=== PATIENT | female | born 1990 | race Caucasian/White ===

== ENCOUNTER 2017-04-14 15:40 | Inpatient (IN) ==
[2017-04-14] MEDS ORDERED: 0.9 % Sodium Chloride 1,000 ML IVC ONE (15:48)
--- NOTE | 2017-04-14 16:13 | Emergency Department Note ---
Disposition Clinical Impression: Flexor tenosynovitis of finger Cellulitis Qualifiers: Site of cellulitis: extremity Site of cellulitis of extremity: finger Laterality: left Qualified Code(s): L03.012 - Cellulitis of left finger Disposition: Admitted As Inpatient Condition: Good Referrals: NONE,PCP [Non-Partnered Physician] - Forms: ED Satisfaction Letter Time of Disposition: 16:53 General Adult HPI - General Chief complaint: ED Extremity Injury, Upper Stated complaint: Left hand infection Time Seen by Provider: 04/14/17 15:47 Source: patient Limitations: no limitations Nursing Notes Reviewed: Yes Vital Signs Reviewed: Yes - History of Present Illness HPI Narrative: 26 year old female who is a patient of dr. gole states that she was sent here yesterday for IV ABX and surgery consult for her left hand infection which she had a HAND CT on 04/08/17 which showed left 2nd metatasal tensynovitis without obvsious evidence of osteomyleitis. 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 Kathleen states that this area on her left palmar 2nd metatarsal develop about one month ago and she has tried outpatient therapy with bactrim and doxycycline and although it has minimally imporved she was told to come to the ED for admission for IV aBX and surgical consult. She states that her PCP has already spoken with the surgeon and he recommends admission as well. Kathleen states there is no drainage or abscess formation, denies any trauma to the area. she denies fevers, or nausea or vomitting. Pain Scale: 2 - Related Data Home Medications Medication Instructions Recorded Confirmed Buprenorphine HCl/Naloxone HCl 1 each SL BID 04/14/17 04/14/17 [Suboxone 8 mg-2 mg Sl Film] Ibuprofen [Motrin] 800 mg PO Q8HR PRN 04/14/17 04/14/17 raNITIdine HCl [Ranitidine HCl] 300 mg PO DAILY 04/14/17 04/14/17 Previous Rx's Medication Instructions Recorded Doxycycline 100 mg PO BID #20 capsule 03/13/17 Allergies Allergy/AdvReac Type Severity Reaction Status Date / Time aspirin [ASA] Allergy Anaphylaxis Verified 09/26/16 11:48 Constitutional: Denies: fever, chills, weakness, weight change Eyes: Denies: eye pain, eye discharge, vision change ENT ED: Denies: ear pain, throat pain, dental pain, hearing loss, epistaxis, congestion, dysphagia Cardiovascular: Denies: chest pain, palpitations, dyspnea on exertion, edema, syncope Respiratory: Denies: cough, dyspnea, wheezes, hemoptysis, stridor Gastrointestinal: Denies: abdominal pain, nausea, vomiting, diarrhea, constipation, hematemesis, melena, hematochezia Genitourinary: Denies: dysuria, frequency, hematuria, discharge Musculoskeletal: Reports: other (left hand pain). Denies: back pain, neck pain , arthralgia, myalgia Integumentary: Denies: rash, abrasion, lesions Neurological: Denies: headache, weakness, numbness, paresthesias, confusion, abnormal gait, vertigo Psychiatric: Denies: anxiety, depression, suicidal thoughts, homicidal thoughts , auditory hallucinations, visual hallucinations Endocrine: Denies: fatigue Hematological/Lymphatic: Denies: easy bleeding, easy bruising Allergic/Immunologic: Denies: facial swelling, urticaria Past Medical History - Past Medical History Medical history: Reports: no medical history Psychiatric history: Reports: no psych history 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 - Social History Smoking Status: Current every day smoker Smokeless Tobacco Status: No Alcohol use: Reports: none Drug use: Reports: IV Drug Use Physical Exam - General Limitations: no limitations General appearance: alert, in no apparent distress - Head Head exam: atraumatic, normocephalic, normal inspection - Eye Eye exam: Present: normal appearance, PERRL, EOMI - Expanded Eye Exam Pupils: Left: reactive - ENT ENT exam: normal exam, normal oropharynx, mucous membranes moist - Expanded ENT Exam External ear exam: Present: normal external inspection Mouth exam: Present: normal external inspection Teeth exam: Present: normal inspection Throat exam: Present: normal inspection - Neck Neck exam: Present: normal inspection, full ROM, trachea midline - Chest Chest inspection: Present: normal inspection, symmetric chest wall rise - Respiratory Respiratory exam: Present: normal lung sounds bilaterally - Cardiovascular Cardiovascular exam: Present: regular rate, normal rhythm, normal heart sounds - Abdominal Exam Abdominal exam: Present: soft, Non-Tender. Absent: tenderness, distention, guarding, rebound, rigidity - Extremities Exam Extremities exam: Present: normal inspection, full ROM. Absent: tenderness, pedal edema - Expanded Upper Extremity Exam Shoulder exam: Present: normal inspection, full ROM Arm exam: Present: normal inspection, full ROM Elbow exam: Present: normal inspection, full ROM Forearm/Wrist exam: Present: normal inspection, full ROM Hand exam: Present: tenderness, swelling, erythema Hand L/R front image: 1 - other (erythema without flunctuance) Vascular exam: Normal: capillary refill, radial pulse - Expanded Lower Extremity Exam Hip/Pelvis exam: Present: normal inspection, full ROM Upper leg exam: Present: normal inspection, full ROM Knee exam: Present: normal inspection, full ROM Lower leg exam: Present: normal inspection, full ROM Ankle exam: Present: normal inspection, full ROM Foot/toe exam: Present: normal inspection, full ROM Neurovascular/Tendon exam: Absent: motor deficit, sensory deficit, tendon deficit - Back Exam Back exam: Present: normal inspection, full ROM. Absent: tenderness - Neurological Exam Neurological exam: Present: alert, oriented X3 - Expanded Neurological Exam Patient oriented to: Present: person, place, time Coma Scale Eye Opening: Spontaneous Coma Scale Motor Response: Obeys Commands Coma Scale Verbal Response: Oriented Coma Scale Total: 15 - Psychiatric Psychiatric exam: Present: normal affect, normal mood - Skin Skin exam: Present: warm, dry, intact, normal color Course Course Narrative: we will page her primary care doctor and investigate the direct admit orders through bed mangement. - Reevaluation(s) Reevaluation #1: updated patinet on resulst and she is agreeable to plan Time: 16:59 - Consultations Consultation #1: discussed case with Dr. Goel and she states that she had consulted Dr. Weiss and that he did not want to see her outpatient and wnated her to be admitted to the medicine service with consult to him for inpatient IV ABX and surigcal consult. We will admit to cam after speaking with Dr. Weiss. Time: 16:41 Consultation #2: discussed case with Dr. Weiss he would like patient admitted to medicine with consult to him. He would like vancoymycin started. Time: 16:53 Consultation #3: discussed case with Dr. Lo and she accepts patient for admission. Time: 16:59 Vital Signs Temperature 98.2 F 04/14/17 15:41 Pulse Rate 101 04/14/17 15:41 Respiratory Rate 18 04/14/17 15:41 Blood Pressure 143/82 04/14/17 15:41 O2 Sat by Pulse Oximetry 98 04/14/17 15:41 Temperature 98.2 F 04/14/17 15:41 Pulse Rate 101 04/14/17 15:41 Respiratory Rate 18 04/14/17 15:41 Blood Pressure 143/82 04/14/17 15:41 O2 Sat by Pulse Oximetry 98 04/14/17 15:41 Oxygen Delivery Oxygen Delivery Room Air Medical Decision Making - Lab Data Result diagrams: 04/14/17 16:09 04/14/17 16:09 Lab Results 04/14/17 04/14/17 04/14/17 Range/Units 16:09 16:09 16:09 WBC 7.0 (4.3-11.1) K/mcL RBC 4.49 (3.82-4.97) M/mcL Hgb 13.5 (11.5-15.4) g/dL Hct 41.1 (35.3-44.9) % MCV 91.5 (83.0-100.0) fL MCH 30.1 (28.0-33.3) pg MCHC 32.8 (31.6-35.5) g/dL RDW 13.5 (11.5-14.5) % Plt Count 235 (140-400) K/mcL MPV 11.2 (9.4-12.4) fL Immature Gran % 0.1 (0-4) % Seg Neutrophils % 45.0 % Lymphocytes % 36.0 % Monocytes % 8.8 % Eosinophils % 9.0 % Basophils % 1.1 % Neutrophils # 3.2 (1.6-8.9) K/mcL Lymphocytes # 2.5 (0.6-4.6) K/mcL Monocytes # 0.6 (0.0-1.3) K/mcL Eosinophils # 0.6 (0.0-0.6) K/mcL Basophils # 0.1 (0.0-0.2) K/mcL PT 11.8 (9.4-12.1) Seconds INR 1.1 APTT 28.9 (26.0-36.0) Seconds Sodium 139 (136-145) mEq/L Potassium 3.3 L (3.5-4.5) mEq/L Chloride 105 (98-109) mEq/L Carbon Dioxide 26 (19-29) mEq/L BUN 15 (7-20) mg/dL Creatinine 0.88 (0.57-1.11) mg/dL Est GFR ( Amer) > 60 (> 60) Est GFR (Non-Af Amer) > 60 (> 60) BUN/Creatinine Ratio 17 (6-26) Glucose 92 (70-99) mg/dL Calculated Osmolality 288 (280-300) Lactic Acid (0.5-2.2) mmol/L Calcium 9.5 (8.6-10.8) mg/dL Phosphorus 3.9 (2.3-4.7) mg/dL Magnesium 1.8 (1.6-2.6) mg/dL Total Bilirubin < 0.3 (0.2-1.2) mg/dL Direct Bilirubin 0.1 (0.0-0.5) mg/dL Indirect Bilirubin 0.2 (0.0-1.2) mg/dL AST 17 (5-34) Units/L ALT 16 (0-55) Units/L Alkaline Phosphatase 52 (38-126) Units/L Serum Total Protein 7.8 (6.0-8.3) g/dL Albumin 3.6 (3.5-5.0) g/dL Globulin 4.2 H (2.4-3.5) g/dL Albumin/Globulin Ratio 0.9 L (1.1-2.2) 04/14/17 Range/Units 16:09 WBC (4.3-11.1) K/mcL RBC (3.82-4.97) M/mcL Hgb (11.5-15.4) g/dL Hct (35.3-44.9) % MCV (83.0-100.0) fL MCH (28.0-33.3) pg MCHC (31.6-35.5) g/dL RDW (11.5-14.5) % Plt Count (140-400) K/mcL MPV (9.4-12.4) fL Immature Gran % (0-4) % Seg Neutrophils % % Lymphocytes % % Monocytes % % Eosinophils % % Basophils % % Neutrophils # (1.6-8.9) K/mcL Lymphocytes # (0.6-4.6) K/mcL Monocytes # (0.0-1.3) K/mcL Eosinophils # (0.0-0.6) K/mcL Basophils # (0.0-0.2) K/mcL PT (9.4-12.1) Seconds INR APTT (26.0-36.0) Seconds Sodium (136-145) mEq/L Potassium (3.5-4.5) mEq/L Chloride (98-109) mEq/L Carbon Dioxide (19-29) mEq/L BUN (7-20) mg/dL Creatinine (0.57-1.11) mg/dL Est GFR ( Amer) (> 60) Est GFR (Non-Af Amer) (> 60) BUN/Creatinine Ratio (6-26) Glucose (70-99) mg/dL Calculated Osmolality (280-300) Lactic Acid 1.6 (0.5-2.2) mmol/L Calcium (8.6-10.8) mg/dL Phosphorus (2.3-4.7) mg/dL Magnesium (1.6-2.6) mg/dL Total Bilirubin (0.2-1.2) mg/dL Direct Bilirubin (0.0-0.5) mg/dL Indirect Bilirubin (0.0-1.2) mg/dL AST (5-34) Units/L ALT (0-55) Units/L Alkaline Phosphatase (38-126) Units/L Serum Total Protein (6.0-8.3) g/dL Albumin (3.5-5.0) g/dL Globulin (2.4-3.5) g/dL Albumin/Globulin Ratio (1.1-2.2)
[2017-04-14 16:30] LABS: Basophils # 0.1 K/mcL (0.0-0.2); Basophils % 1.1 %; Eosinophils # 0.6 K/mcL (0.0-0.6); Hematocrit 41.1 % (35.3-44.9); Hemoglobin 13.5 g/dL (11.5-15.4); Immature Granulocytes % 0.1 % (0-4); Lymphocytes # 2.5 K/mcL (0.6-4.6); Mean Corpuscular HGB Conc 32.8 g/dL (31.6-35.5); Mean Corpuscular Hemoglobin 30.1 pg (28.0-33.3); Mean Corpuscular Volume 91.5 fL (83.0-100.0); Mean Platelet Volume 11.2 fL (9.4-12.4); Monocytes # 0.6 K/mcL (0.0-1.3); Monocytes % 8.8 %; Neutrophils # 3.2 K/mcL (1.6-8.9); Platelet Count 235 K/mcL (140-400); Red Blood Count 4.49 M/mcL (3.82-4.97); Red Cell Distribution Width 13.5 % (11.5-14.5)
[2017-04-14 16:35] LABS: INR 1.1; Prothrombin Time 11.8 Seconds (9.4-12.1)
[2017-04-14 16:37] LABS: Activated Partial Thrombo Time 28.9 Seconds (26.0-36.0)
[2017-04-14 16:43] LABS: Alanine Aminotransferase 16 Units/L (0-55); Albumin 3.6 g/dL (3.5-5.0); Albumin/Globulin Ratio 0.9 (1.1-2.2); Alkaline Phosphatase 52 Units/L (38-126); Aspartate Amino Transferase 17 Units/L (5-34); BUN/Creatinine Ratio 17 (6-26); Bilirubin,Direct 0.1 mg/dL (0.0-0.5); Bilirubin,Indirect 0.2 mg/dL (0.0-1.2); Blood Urea Nitrogen 15 mg/dL (7-20); Calcium 9.5 mg/dL (8.6-10.8); Carbon Dioxide 26 mEq/L (19-29); Chloride 105 mEq/L (98-109); Globulin 4.2 g/dL (2.4-3.5); Glucose 92 mg/dL (70-99); Magnesium 1.8 mg/dL (1.6-2.6); Osmolality,Calculated 288 (280-300); Phosphorous 3.9 mg/dL (2.3-4.7); Potassium 3.3 mEq/L (3.5-4.5); Sodium 139 mEq/L (136-145); Total Protein 7.8 g/dL (6.0-8.3); eGFR For African Americans > 60 (> 60); eGFR For Non-African Americans > 60 (> 60)
[2017-04-14 16:46] LABS: Bilirubin,Total < 0.3 mg/dL (0.2-1.2)
[2017-04-14] MEDS ORDERED: Vancomycin 1,000 MG in D5% in Water 250 ML IVPB ONE (16:48)
[2017-04-14] MEDS ORDERED: Naloxone 0.4 MG/ML INJ IVP PRN (17:38)
[2017-04-14] MEDS ORDERED: Acetaminophen 325 MG TABLET PO PRN (17:38)
--- NOTE | 2017-04-14 17:53 | Internal Med History&Physical ---
<Madhu Bryan J - Last Filed: 04/14/17 17:45> Date of Encounter: 04/14/17 Time of Encounter: 17:45 Assessment and Plan (1) Cellulitis Current visit: Yes Status: Acute Cellulitis, rule out tenosynovitis. Patient has a one-month history of new swelling of the metacarpal of the left index finger. Failed outpatient therapy 2 as explained in the history of present illness. Being admitted to [facility] for IV antibiotic therapy. Received 1 g of vancomycin in the ED. Admit for observation status CBC and BMP in the a.m. Discontinue her home Bactrim double strength and doxycycline therapy Continue vancomycin therapy as started in the ED Ortho has been consulted Consider additional imaging if symptoms worsen or patient does not improve. Continue to monitor and provide antibiotic therapy, consider surgical intervention if no improvement. Qualifiers: Site of cellulitis: extremity Site of cellulitis of extremity: finger Laterality: left Qualified Code(s): L03.012 - Cellulitis of left finger (2) Flexor tenosynovitis of finger Current visit: Yes Status: Acute Cellulitis versus flexor tenosynovitis. One month history of metacarpal swelling of the left index finger. CAT scan of the left hand exhibits inflammation but no osteomyelitis. Dr. Burleson consult to. Patient was started on vancomycin in the ED. CBC and BMP in the a.m. Continue vancomycin as started in the ED Consider surgical intervention if she does not improve with antibiotic therapy (3) DVT prophylaxis Current visit: Yes Status: Acute SC lovenox for DVT prophylaxis. Internal Medicine - H&P: HPI Chief complaint: Cellulitis r/o tenosynovitis of the Left first metacarpal Admitted From: Home Plans for Post Hospital Care: Home History of present illness: Ms. 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 She was initially to be sent to [facility] yesterday for administration of IV antibiotics and surgical consult for cellulitis rule out tenosynovitis of the metacarpal of the left index finger and failed outpatient antibiotic treatment. 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 She presents today to [facility] 04-14-17 for admission for antibiotic therapy and surgical consult. All information obtained from chart review and patient report. Patient states that one month ago she was vacuuming her house and noticed some pain in her index finger. That night she went to sleep and the pain continued and when she woke the next morning her finger was swollen and she was unable to move it. She reports having seen her primary care provider on 2 separate occasions for antibiotic therapy. During the first visit she was prescribed Bactrim which failed treatment. Upon subsequent visit she was prescribed Bactrim double strength and doxycycline which resulted in failed treatment. CT on 04-08-17 reveals possible metacarpal tenosynovitis of the index finger however, no evidence of osteomyelitis at this time. The CT revealed inflammatory changes from the head to the base of the metacarpal. Upon examination the patient was found to have erythema and edema of the index finger. However, she reports having more range of motion for the last week and she has had during the last month. In the ED she was seen by orthopedic and started on IV vancomycin 1 g and this is to continue at the request of Dr. Haile. She is being admitted to [facility] for further evaluation and workup, and continued IV antibiotic therapy. Past Med Surg Social Fam HX - Past Medical History Medical history: no medical history Psychiatric history: no psych history - Social History Smoking Status: Current every day smoker Smokeless Tobacco Status: No Alcohol use: none Drug use: IV Drug Use - Additional Family History Additional family history: Family history is noncontributory Internal Medicine - H&P: Meds Doxycycline 100 mg PO BID #20 capsule 03/13/17 [Rx] Buprenorphine HCl/Naloxone HCl [Suboxone 8 mg-2 mg Sl Film] 1 each SL BID [History] Ibuprofen [Motrin] 800 mg PO Q8HR PRN 04/14/17 [History] raNITIdine HCl [Ranitidine HCl] 300 mg PO DAILY 04/14/17 [History] Allergies aspirin [ASA] Allergy (Unverified 04/14/17 18:51) Anaphylaxis Pt states she does not have allery to asa All Systems PM: A 10-system review of systems was performed and is negative for pertinent findings except as documented above in the HPI. - Constitutional Constitutional: no chills, no excessive sweating, no fatigue, no fever(s), no malaise, no night sweats - EENT Eyes: no change in vision, no discharge, no pain, no photophobia Ears: no ear discharge, no ear pain, no tinnitus Nose, mouth and throat: no dysphagia, no nasal discharge, no neck pain, no sore throat - Cardiovascular Cardiovascular ROS IM: no chest pain, no diaphoresis, no dyspnea, no lightheadedness, no palpitations, no syncope - Respiratory Respiratory: no cough, no dyspnea, no wheezing, no excessive phlegm production - Gastrointestinal Gastrointestinal: no abdominal pain, no diarrhea, no hematemesis, no hematochezia, no melena, no nausea, no vomiting - Genitourinary Genitourinary: no change in urinary stream, no dysuria, no flank pain, no hematuria - Musculoskeletal Musculoskeletal ROS IM: joint swelling, limited range of motion, no numbness, no tingling Additional comments: Noted joint swelling and limited range of motion to left index finger. - Integumentary Integumentary IM: no rash, no unusual bruising Additional comments: She reports no new lesions, wounds or ulcers. - Neurological Neurological ROS: no confusion, no convulsions, no focal weakness, no numbness, no tingling, no tremor(s) - Hematologic/Lymphatic Hematologic/Lymphatic: no easy bruising - Constitutional Vitals: Temp Pulse Resp BP Pulse Ox 98.2 F 101 16 110/78 98 04/14/17 15:41 04/14/17 15:41 04/14/17 17:37 04/14/17 17:37 04/14/17 15:41 General appearance: Present: A&O X 3, pleasant, no acute distress, answers questions appropriately - Head Head exam: Present: atraumatic, normocephalic - Eye Eye exam: Present: PERRL, conjuntiva pink, sclera anicteric Pupils: Present: PERRL - Neck Neck exam general surgery: Present: supple, trachea midline. Absent: lymphadenopathy - Respiratory Respiratory exam: Present: CTAB. Absent: accessory muscle use, rales, rhonchi, wheezes - Cardiovascular Cardiovascular exam: Present: RRR, +S1, +S2. Absent: diastolic murmur, gallop, rubs, systolic murmur - GI/Abdominal GI/Abdominal exam: Present: normal bowel sounds, soft, no peritoneal signs. Absent: distended, tenderness - Extremities Exam Extremities exam: Present: warm, radial pulses palpable and symmetrical. Absent : calf tenderness, cyanotic, pedal edema - Expanded Upper Extremities Exam Hand wrist exam: Present: erythema, swelling. Absent: abrasion, dislocation, ecchymosis, full ROM Hand L/R front image: 1 - Erythema, edema noted. Mild tenderness to palpation of joint space. Site is cool with positive circulation Neuro motor exam: Present: fingers 2-5 abduction intact, wrist extension intact Neurosensory exam: Present: median nerve intact, radial nerve intact, ulnar nerve intact Vascular exam: Present: normal capillary refill - Neurological Exam Neurological exam: Present: CN II-XII intact, oriented X3, no focal deficits. Absent: pronater drift, facial droop, speech deficit - Skin Skin exam: Present: dry, intact Additional comments: Skin integrity intact, erythema and edema as noted in the hand exam Internal Med - H&P Results - Labs CBC & Chem 7: 04/14/17 16:09 04/14/17 16:09 <Sweetie Gonzales - Last Filed: 04/14/17 18:52> Date of Encounter: 04/14/17 Internal Medicine - H&P: HPI History of present illness: Ms. Corcoran is a 26 year old female All Systems PM: A 10-system review of systems was performed and is negative for pertinent findings except as documented above in the HPI. - Constitutional Vitals: Temp Pulse Resp BP Pulse Ox 98.2 F 101 16 110/78 98 04/14/17 15:41 04/14/17 15:41 04/14/17 17:37 04/14/17 17:37 04/14/17 15:41 Internal Med - H&P Results - Labs CBC & Chem 7: 04/14/17 16:09 04/14/17 16:09 - Attending Attestation I examined this patient and my medical decision-making was reviewed with the GEOGRAPHIC ANALYST> . I agree with the documented findings, disposition and treatment plan as described
[2017-04-14] MEDS ORDERED: Ibuprofen 800 MG TABLET PO PRN ×2 (18:07→18:39)
--- NOTE | 2017-04-14 18:43 | Orthopedic Consult Note ---
Date of Encounter: 04/14/17 Time of Encounter: 17:45 Assessment and Plan (1) Cellulitis Current Visit: Yes Status: Acute Continue IV abx. Elevate hand. ROM as tolerated. Will reevaluate tomorrow. Will discuss option of surgical intervention if no improvement. Qualifiers: Site of cellulitis: extremity Site of cellulitis of extremity: finger Laterality: left Qualified Code(s): L03.012 - Cellulitis of left finger History of Present Illness Chief complaint: left hand pain HPI: Ms. Corcoran is a 26 year old female who presented to the ER today with left index finger swelling/ pain which she states her PCP has been treating for the past 1- 2 months with several courses of bactrim and doxycycline with little improvement. Pain described as pressure that is constant mostly over the MC head , Denies any numbness to hand. Denies any known injury to hand. States her motion of the index finger has actually improved over the past week despite swelling staying the same. Denies any other symptoms at this time. Past Med Surg Social Fam HX - Past Medical History Medical history: no medical history Psychiatric history: no psych history - Social History Smoking Status: Current every day smoker Smokeless Tobacco Status: No Alcohol use: none Drug use: IV Drug Use Medications and Allergies Doxycycline 100 mg PO BID #20 capsule 03/13/17 [Rx] Buprenorphine HCl/Naloxone HCl [Suboxone 8 mg-2 mg Sl Film] 1 each SL BID [History] Ibuprofen [Motrin] 800 mg PO Q8HR PRN 04/14/17 [History] raNITIdine HCl [Ranitidine HCl] 300 mg PO DAILY 04/14/17 [History] Allergies aspirin [ASA] Allergy (Verified 09/26/16 11:48) Anaphylaxis All Systems Reviewed: A 10-system review of systems was performed and is negative for pertinent findings except as documented above in the HPI. - Constitutional Constitutional: as per HPI - Cardiovascular Cardiovascular: as per HPI - Respiratory Respiratory: as per HPI - Musculoskeletal Musculoskeletal: as per HPI Physical Exam - Constitutional Vitals: Temp Pulse Resp BP Pulse Ox 98.2 F 101 16 110/78 98 04/14/17 15:41 04/14/17 15:41 04/14/17 17:37 04/14/17 17:37 04/14/17 15:41 - Wrist & Hand left Location of pain: index finger (moderate swelling of the 2nd proximal phalanx and MC head with mild erythema on volar side. No open wounds or lesions noted. Finger is not held in flexed position and she can obtain almost full motion of the finger. No increase pain with flexion or extension. Moderate tenderness to papation over 2nd MC head on volar side but no tenderness to palpation along rest of tendon sheath. Brisk cap refill. NV intact.) Results - Labs Result Diagrams: 04/14/17 16:09 04/14/17 16:09 Labs: Abnormal lab results Potassium 3.3 mEq/L (3.5-4.5) L 04/14/17 16:09 Globulin 4.2 g/dL (2.4-3.5) H 04/14/17 16:09 Albumin/Globulin Ratio 0.9 (1.1-2.2) L 04/14/17 16:09 All other labs normal. - Diagnostic results Wrist/Hand CT: report reviewed, image reviewed Consult Discharge Plan - Plan Referrals: Ashley Goel MD [Primary Care Provider] - - Attending Attestation Case and plan of care discussed with supervising physician who was available for all aspects of care.
[2017-04-14] MEDS ORDERED: Vancomycin 1,000 MG in D5% in Water 250 ML IVPB SCH (19:00)
[2017-04-14] MEDS: Nicotine 21 MG PATCH.TD24 TD SCH (22:14)
[2017-04-15] MEDS: NALOXONE HCL SL SCH ×2 (05:35→08:19)
[2017-04-15] MEDS: BUPRENORPHINE HCL SL SCH ×2 (05:35→08:19)
[2017-04-15 05:50] LABS: Basophils # 0.1 K/mcL (0.0-0.2); Basophils % 0.8 %; Eosinophils # 0.4 K/mcL (0.0-0.6); Eosinophils % 7.2 %; Hematocrit 37.5 % (35.3-44.9); Immature Granulocytes % 0.3 % (0-4); Lymphocytes # 2.3 K/mcL (0.6-4.6); Lymphocytes % 37.9 %; Mean Corpuscular Hemoglobin 29.9 pg (28.0-33.3); Mean Corpuscular Volume 93.3 fL (83.0-100.0); Mean Platelet Volume 11.5 fL (9.4-12.4); Monocytes # 0.6 K/mcL (0.0-1.3); Monocytes % 9.3 %; Neutrophils # 2.7 K/mcL (1.6-8.9); Platelet Count 215 K/mcL (140-400); Red Blood Count 4.02 M/mcL (3.82-4.97); Red Cell Distribution Width 13.7 % (11.5-14.5); Segmented Neutrophils % 44.5 %
[2017-04-15 06:00] LABS: BUN/Creatinine Ratio 18 (6-26); Blood Urea Nitrogen 14 mg/dL (7-20); Calcium 8.8 mg/dL (8.6-10.8); Carbon Dioxide 26 mEq/L (19-29); Chloride 107 mEq/L (98-109); Glucose 80 mg/dL (70-99); Osmolality,Calculated 287 (280-300); Potassium 3.6 mEq/L (3.5-4.5); Sodium 139 mEq/L (136-145); eGFR For African Americans > 60 (> 60); eGFR For Non-African Americans > 60 (> 60)
[2017-04-15] MEDS ORDERED: Vancomycin 1,000 MG in D5% in Water 250 ML IVPB SCH (06:00)
[2017-04-15] MEDS ORDERED: *HR* Enoxaparin 40 MG/0.4 ML SYRINGE SQ SCH (06:00)
[2017-04-15 07:41] VITALS: BP 107/72
[2017-04-15] MEDS: Nicotine 21 MG PATCH.TD24 TD SCH (08:18)
[2017-04-15] MEDS ORDERED: Famotidine 20 MG TABLET PO SCH (09:00)
--- NOTE | 2017-04-15 09:50 | Orthopedics Progress Note ---
Date of Encounter: 04/15/17 Time of Encounter: 09:20 - Assessment and Plan (1) Cellulitis Current Visit: Yes Status: Acute Patient notes improvement overnight and has no pain at all today in the hand, however swelling appears to have not changed compared to exam yesterday. WBC WNL, ESR24, CRP pending Radiologist recommended MRI based on CT results, will order for MRI now for further evaluation of swelling. Continue IV abx until source of swelling is clear. Elevate hand. ROM as tolerated. Qualifiers: Site of cellulitis: extremity Site of cellulitis of extremity: finger Laterality: left Qualified Code(s): L03.012 - Cellulitis of left finger Subjective Principal diagnosis: left 2nd digit swelling Interval history: Patient states she is doing well today and she feels that the finger is improved some overnight as she has increased motion. Denies any pain today. Denies numbness. Denies any history of the finger triggering. Objective Vital signs: Vital Signs Temp Pulse Resp BP Pulse Ox 04/15/17 06:50 98.0 F 78 14 107/72 97 04/15/17 05:00 98.1 F 72 15 100/65 99 04/14/17 22:55 97.4 F L 78 16 101/63 100 04/14/17 20:45 98.0 F 88 16 120/75 98 04/14/17 17:37 16 110/78 Intake and Output 04/14/17 04/15/17 04/15/17 23:59 07:59 15:59 Intake Total 0 / 0 0 / 0 250 / 250 Output Total 0 / 0 0 / 0 Balance 0 / 0 0 / 0 250 / 250 Intake: IV Fluids 250 / 250 Vancocin 1,000 MG In 250 / 250 Dextrose 5% 250 ML @ 167 mls/hr IVPB Q12HR KEISHA Rx# :[id number] Oral 0 / 0 0 / 0 Output: Urine 0 / 0 0 / 0 Other: # Voids 3 Weight 73.8 kg Patient Weight 04/15/17 23:59 Weight 73.8 kg Incision: swollen (left index finger continues to have swelling around proximal phalanx and MC head on volar side. no tenderness to palpation of 2nd digit or MC , almost full AROM of 2nd digit, brisk cap refill, NV intact. No triggering noted.) - Labs CBC & BMP: 04/15/17 05:00 04/15/17 05:00 Labs: Abnormal lab results ESR 24 mm/hr (0-15) H 04/15/17 05:00 Globulin 4.2 g/dL (2.4-3.5) H 04/14/17 16:09 Albumin/Globulin Ratio 0.9 (1.1-2.2) L 04/14/17 16:09 Consult Discharge Plan - Plan Referrals: Ashley Goel MD [Primary Care Provider] -
[2017-04-15 10:17] LABS: C-Reactive Protein 2 mg/L (Less than 5)
--- NOTE | 2017-04-15 13:19 | Internal Med Progress Note ---
Date of Encounter: 04/15/17 Time of Encounter: 09:25 - Assessment and plan (1) Flexor tenosynovitis of finger Current Visit: Yes Status: Acute Assessment and plan: MRI of the left hand shows flexor tenosynovitis of the second flexor tendon sheath. Orthopedics is following patient. Continue IV antibiotics for now. We will follow orthopedics recommendations (2) Cellulitis Current Visit: Yes Status: Acute Assessment and plan: Continue IV antibiotics. Clinically improving with improvement in the amount of swelling over the left hand. Qualifiers: Site of cellulitis: extremity Site of cellulitis of extremity: finger Laterality: left Qualified Code(s): L03.012 - Cellulitis of left finger (3) DVT prophylaxis Current Visit: Yes Status: Acute Assessment and plan: With Lovenox - Subjective Interval history: Patient states that swelling has improved in her left hand and it is less painful compared to yesterday. No new complaints at this time. No fever or chills reported. - Constitutional Vitals: Temp Pulse Resp BP Pulse Ox 98.0 F 78 14 107/72 97 04/15/17 06:50 04/15/17 06:50 04/15/17 06:50 04/15/17 06:50 04/15/17 06:50 General appearance: Present: A&O X 3, pleasant, no acute distress, answers questions appropriately - Respiratory Respiratory exam: Present: CTAB. Absent: accessory muscle use, rales, rhonchi, wheezes - Cardiovascular Cardiovascular exam: Present: RRR, +S1, +S2. Absent: diastolic murmur, gallop, rubs, systolic murmur - Extremities Exam Extremities exam: Present: tenderness (Tenderness over the left second metacarpophalangeal joint), warm, radial pulses palpable and symmetrical. Absent: calf tenderness, cyanotic, pedal edema - Neurological Exam Neurological exam: Present: alert, oriented X3, no focal deficits. Absent: facial droop, speech deficit Internal Medicine: Result - Labs CBC & Chem 7: 04/15/17 05:00 04/15/17 05:00 Labs: Short CBC 04/15/17 Range/Units 05:00 WBC 6.1 (4.3-11.1) K/mcL Hgb 12.0 D (11.5-15.4) g/dL Hct 37.5 (35.3-44.9) % Plt Count 215 (140-400) K/mcL Neutrophils # 2.7 (1.6-8.9) K/mcL BMP 04/15/17 05:00 Sodium 139 Potassium 3.6 Chloride 107 Carbon Dioxide 26 BUN 14 Creatinine 0.80 Glucose 80 Calcium 8.8 - ABG Interpretation ABG results: PT/INR, D-dimer PT 11.8 Seconds (9.4-12.1) 04/14/17 16:09 - Impressions Impressions Hand MRI 04/15/17 09:40 IMPRESSION: Severe 2nd flexor tenosynovitis. Moderate tendinopathy of the profunda tendon with suspected partial thickness tearing of the superficialis tendon. D/ / 04/15/2017 12:57:00 Price Cartwright MD / [facility] Interpreting Provider: Price Cartwright MD Consult Discharge Plan - Plan Referrals: Ashley Goel MD [Primary Care Provider] -
[2017-04-15] MEDS ORDERED: Aminoglycoside Consult 1 EACH MC ONE (13:38)
[2017-04-16 18:55] LABS: Acinetobacter baumannii by PCR Not Detected (Not Detect); Candida albicans by PCR Not Detected (Not Detect); Candida glabrata by PCR Not Detected (Not Detect); Candida krusei by PCR Not Detected (Not Detect); Candida parapsilosis by PCR Not Detected (Not Detect); Candida tropicalis by PCR Not Detected (Not Detect); Enterococcus by PCR Not Detected (Not Detect); Escherichia coli by PCR Not Detected (Not Detect); Klebsiella oxytoca by PCR Not Detected (Not Detect); Klebsiella pneumoniae by PCR Not Detected (Not Detect); Pseudomonas aeruginosa by PCR Not Detected (Not Detect); Serratia marcescens by PCR Not Detected (Not Detect); Staphylococcus aureus by PCR Not Detected (Not Detect); Streptococcus agalactiae(B)PCR Not Detected (Not Detect); Streptococcus by PCR Not Detected (Not Detect); Streptococcus pneumoniae PCR Not Detected (Not Detect); Streptococcus pyogenes (A) PCR Not Detected (Not Detect); blaKPC Carbapenem-Resist Gene Not Detected (Not Detect); mecA Methicillin-Resist Gene Not Detected (Not Detect); vanA/B Vancomycin-Resist Genes Not Detected (Not Detect)
--- NOTE | 2017-04-16 21:34 | Event Note ---
<Bobby Lane - Last Filed: 04/16/17 21:35> Date of Encounter: 04/16/17 Time of Encounter: 20:30 Patient was admitted on 04/15/17 for diagnosis of cellulitis of the finger and flexor tenosynovitis of the second flexor tendon sheath of the left hand. Patient left the hospital against medical advice due to having an urgent personal matter she said she needed to take care of. Patient was sent with prescriptions for PO ciprofloxacin and clindamycin with instructions to follow up with orthopedics for further management post-discharge. Plan is to contact the patient and have her return to the hospital for admission to receive IV cipro and clindamycin for monitored infection coverage. However, follow-up attempt to patient's cell phone was unsuccessful as the phone number is temporarily disconnected. Contact was made to the second phone number with gentleman who states she no longer lives there but she comes by to see him. Instructions were left for the patient to contact me at the hospital for an urgent matter that required her immediate attention. Read-back of my name and contact phone number confirmed by the individual. Will attempt again if patient does not contact me within the next 24 hours. If patient refuses to come back to the hospital, she will be instructed to continue her PO clindamycin and ciprofloxacin as instructed and to come back to the ED if she develops a fever, diarrhea, or begins to feel worse. <Emanuel Chaves - Last Filed: 04/16/17 23:39> Date of Encounter: 04/16/17 I agree with the documentation above by nurse practitioner, Bobby Lane. My assessment is summarized below:. Patient was admitted for cellulitis and tenosynovitis of the finger. She signed out AMA. We called her back and were unable to get in touch with her. I will ask nursing jewelry department supervisor to contact her during the daytime tomorrow and bring her back to the hospital to continue treatment for gram-negative pravin sepsis. We will follow-up blood cultures and sensitivities.
== END 2017-04-15 13:39 | disposition home or self-care (01) | DRG 720 ==
LOC: EMEROO 15:40 → 3ANU 15:40
PROVIDERS: ADMIT Internal Medicine; ATTEND Internal Medicine